=== PATIENT | female | born 1950 | race Caucasian/White ===

== ENCOUNTER 2019-01-04 14:25 | Emergency (ER) | payer BC ==
[~2019-01-04] VITALS: Ht 170.2 cm; Wt 90.7 kg
[~2019-01-04 14:25] MED LIST: ALBU2.5V8 INH; CITA40TA12 PO; CLON0.5T20 PO; GEMF600T8 PO; GLIP5TAB10 PO; LISI1TAB3 PO; MELO15TA23 PO; MULT-18 PO; OMEG1CAP29 PO; OMEP40CA5 PO; SITA1TAB11 PO; [UNRECOGNIZED DRUG - OTHER]
--- NOTE | 2019-01-04 15:25 | RAD ---
EXAM: Right shoulder, 3 views. HISTORY: Fall. COMPARISON: None. FINDINGS: 2 views of the right shoulder obtained. There is a mildly displaced humeral head and neck fracture. There is no shoulder dislocation. IMPRESSION: Mildly displaced humeral head and neck fracture. Electronically signed by: Kiah Elizabeth MD (01/04/2019 3:22 PM) [facility]
[2019-01-04 15:28] VITALS: BP 162/85
--- NOTE | 2019-01-04 15:37 | PHYS DOC ---
Past Medical History Past Medical History: Arthritis, Diabetes-Type II, High Cholesterol, Hypertension Additional Past Medical Histor: Vericose Veins Past Surgical History: Cholecystectomy, Hysterectomy, Tonsillectomy, Other Additional Past Surgical Histo: Bladder sling, L ARM Alcohol Use: None Drug Use: None Adult General Chief Complaint Chief Complaint: MECHANICAL FALL HPI HPI 68-year-old female presents with a right shoulder injury. She slipped and fell on the ice and landed on her right shoulder. Because of the pain she called EMS and EMS brought her here for further evaluation. Patient states other than her right shoulder she feels okay. She did not hit her head or lose consciousness. She states she clearly slipped on ice and had no preceding symptoms such as chest pain shortness of breath or palpitations. She states the pain was severe but she received pain medicine via EMS prior to arrival. She did receive 100 g of fentanyl en route.[] Review of Systems Review of Systems Constitutional: Denies fever or chills [] Eyes: Denies change in visual acuity, redness, or eye pain [] HENT: Denies nasal congestion or sore throat [] Respiratory: Denies cough or shortness of breath [] Cardiovascular: No additional information not addressed in HPI [] GI: Denies abdominal pain, nausea, vomiting, bloody stools or diarrhea [] : Denies dysuria or hematuria [] Musculoskeletal: Per history of present illness[] Integument: Denies rash or skin lesions [] Neurologic: Denies headache, focal weakness or sensory changes [] Endocrine: Denies polyuria or polydipsia [] All other systems were reviewed and found to be within normal limits, except as documented in this note. Current Medications Current Medications Current Medications Medications (Trade) Dose Ordered Sig/Rosemarie Start Time Stop Time Status Last Admin Dose Admin Ondansetron HCl (Zofran Odt) 4 mg 1X ONCE 01/04/19 15:45 01/04/19 15:46 Oxycodone/ Acetaminophen (Percocet 5/325) 2 tab 1X ONCE 01/04/19 15:45 01/04/19 15:46 Allergies Allergies Allergies Coded Allergies Type Severity Reaction Last Updated Verified Penicillins Allergy Intermediate Rash 09/21/15 Yes Tbmknci-Tyt-Uca Reductase Inhibitor Allergy Intermediate MUSCLE ACHES, RHABDO 09/21/15 Yes Physical Exam Physical Exam Constitutional: Well developed, well nourished, mild distress, non-toxic appearance. [] HENT: Normocephalic, atraumatic, bilateral external ears normal, oropharynx moist, no oral exudates, nose normal. [] Eyes: PERRLA, EOMI, conjunctiva normal, no discharge. [] Neck: Normal range of motion, no tenderness, supple, no stridor. [] Cardiovascular:Heart rate regular rhythm, no murmur [] Lungs & Thorax: Bilateral breath sounds clear to auscultation [] Abdomen: Bowel sounds normal, soft, no tenderness, no masses, no pulsatile masses. [] Skin: Warm, dry, no erythema, no rash. [] Back: No tenderness, no CVA tenderness. [] Extremities: Right shoulder has some soft tissue swelling decreased range of motion secondary to pain no obvious deformity no pain over the before meals joint no crepitus over the clavicle.. [] Neurologic: Alert and oriented X 3, normal motor function, normal sensory function, no focal deficits noted. [] Psychologic: Affect normal, judgement normal, mood normal. [] Current Patient Data Vital Signs Vital Signs Date Time Temp Pulse Resp B/P (MAP) Pulse Ox O2 Delivery O2 Flow Rate FiO2 01/04/19 14:26 98.1 64 16 169/77 (107) 100 Room Air 98.1 EKG EKG [] Radiology/Procedures Radiology/Procedures [] Impressions: PROCEDURE: SHOULDER 2+V RIGHT EXAM: Right shoulder, 3 views. HISTORY: Fall. COMPARISON: None. FINDINGS: 2 views of the right shoulder obtained. There is a mildly displaced humeral head and neck fracture. There is no shoulder dislocation. IMPRESSION: Mildly displaced humeral head and neck fracture. Course & Med Decision Making Course & Med Decision Making Pertinent Labs and Imaging studies reviewed. (See chart for details) [] Dragon Disclaimer Dragon Disclaimer This electronic medical record was generated, in whole or in part, using a voice recognition dictation system. Departure Departure Impression: Primary Impression: Proximal humerus fracture Disposition: 01 HOME, SELF-CARE Condition: STABLE Referrals: MARTIN HANNA MD (PCP) EMILIANO MESSINA MD He will need to follow with Dr. Messina in the next 1-2 days for recheck Patient Instructions: Shoulder Fracture (Proximal Humerus or Glenoid)-SportsMed Additional Instructions: Call Dr. Messina's office tomorrow to schedule a follow-up appointment Scripts Ondansetron (ONDANSETRON ODT) 4 Mg Tab.rapdis 1 TAB PO PRN Q6-8HRS for VOMITING, #20 TAB Prov: EMILI MELLO DO 01/04/19 Hydrocodone/Apap 5-325 (NORCO 5-325 TABLET) 1 Each Tablet 1 TAB PO PRN Q6HRS PRN for PAIN, #20 TAB 0 Refills Prov: EMILI MELLO DO 01/04/19 Problem Qualifiers Primary Impression: Proximal humerus fracture Encounter type: initial encounter Fracture type: closed Fracture morphology : other fracture Fracture alignment: nondisplaced Laterality: right Qualified Codes: S42.294A - Other nondisplaced fracture of upper end of right humerus, initial encounter for closed fracture EMILI MELLO DO Jan 04, 2019 15:37
[2019-01-04] MEDS ORDERED: ONDANSETRON ODT 4 MG TAB.RAPDIS. PO ONE (15:45)
[2019-01-04] MEDS ORDERED: oxyCODONE/APAP 5/325 1 TAB TABLET PO ONE (15:45)
[2019-01-04] MEDS ORDERED: ONDA4TAB12 PO (15:49)
[2019-01-04] MEDS ORDERED: HYDR-3164 PO (15:49)
== END 2019-01-04 16:06 | disposition home or self-care (01) ==
LOC: ER 14:25
DX: S42.291A Other displaced fracture of upper end of right humerus, initial encounter for closed fracture (principal); E78.00 Pure hypercholesterolemia, unspecified; E11.9 Type 2 diabetes mellitus without complications; I10 Essential (primary) hypertension; Z88.0 Allergy status to penicillin; Z91.041 Radiographic dye allergy status; W00.0XXA Fall on same level due to ice and snow, initial encounter; Y93.89 Activity, other specified; Y92.89 Other specified places as the place of occurrence of the external cause; Y99.8 Other external cause status
CPT/HCPCS: 29105; 73030; 99284; Q0162

== ENCOUNTER 2019-01-07 16:16 | Emergency (ER) | payer BC ==
[~2019-01-07] VITALS: Ht 170.2 cm; Wt 90.7 kg
[~2019-01-07 16:16] MED LIST changes: +HYDR-3164 PO; +ONDA4TAB12 PO
[2019-01-07] MEDS ORDERED: MORPHINE SULFATE 10 MG/ML VIAL. SQ ONE (16:45)
--- NOTE | 2019-01-07 18:21 | RAD ---
WRIST 3V RIGHT (PA, oblique, lateral) INDICATION: pain after fall COMPARISON: None. FINDINGS: No displaced fracture or malalignment. Mild intercarpal arthrosis. Bony mineralization is normal for the patient's age. No significant soft tissue abnormality. No radiopaque foreign body. IMPRESSION: No displaced fracture or malalignment. Electronically signed by: Lang Begum MD (01/07/2019 6:18 PM) [facility]
--- NOTE | 2019-01-07 18:22 | RAD ---
3 views right elbow HISTORY: Pain after fall AP lateral oblique views The visualized osseous structures appear normal. There is no displacement of the fat pad. IMPRESSION: No acute findings. End impression 3 view C-spine AP open-mouth and lateral views of the C-spine were obtained There is straightening of the normal cervical lordosis. There is mild anterolisthesis of C4 on C5. There is mild soft tissue prominence at the C5-C7 level. At C6-C7 there is loss of intervertebral disc height and marginal spurring and eburnation of the endplates. The C1-C2 relationship appears normal. IMPRESSION: 1. Mild anterolisthesis of C4 on C5 could be degenerative. 2. Straightening of the normal cervical lordosis could be positional or could be muscle spasm. 3. No CT evidence of an acute fracture or malalignment. Clinical correlation is suggested. If there is a clinical concern for an acute injury CT the C-spine is recommended. Electronically signed by: Fabiano Mohan III, MD (01/07/2019 6:19 PM) [facility]
[2019-01-07] MEDS ORDERED: HYDR-3135 PO (18:28)
--- NOTE | 2019-01-07 18:29 | PHYS DOC ---
Past Medical History Past Medical History: Arthritis, Diabetes-Type II, High Cholesterol, Hypertension Additional Past Medical Histor: Vericose Veins (EMELI ISLAS APRN) Past Surgical History: Cholecystectomy, Hysterectomy, Tonsillectomy, Other Additional Past Surgical Histo: Bladder sling, L ARM (EMELI ISLAS APRN) Alcohol Use: None Drug Use: None (EMELI ISLAS APRN) Adult General Chief Complaint Chief Complaint: UPPER EXTREMITY PAIN HPI HPI Patient is a 68 year old female who presents with pain to her right arm and wrist following a fall that resulted in a humeral head fracture. The patient states that she tried to get an appointment with orthopedics but they were not able to see her until January 25, 2019. She states that the pain is intolerable. She states that she is worried she has also fractured her wrist. She is also having pain in her neck. She has been taking the pain medication that she was prescribed but states that it is not effective. (EMELI ISLAS APRN) Review of Systems Review of Systems Constitutional: Denies fever or chills [] Respiratory: Denies cough or shortness of breath [] Cardiovascular: No additional information not addressed in HPI [] GI: Denies abdominal pain, nausea, vomiting, bloody stools or diarrhea [] : Denies dysuria or hematuria [] Musculoskeletal: See history of present illness Integument: Denies rash or skin lesions [] Neurologic: Denies headache, focal weakness or sensory changes [] Endocrine: Denies polyuria or polydipsia [] All other systems were reviewed and found to be within normal limits, except as documented in this note. (EMELI ISLAS APRN) Current Medications Current Medications Current Medications Medications (Trade) Dose Ordered Sig/Rosemarie Start Time Stop Time Status Last Admin Dose Admin Morphine Sulfate (Morphine Sulfate) 10 mg 1X ONCE 01/07/19 16:45 01/07/19 16:46 DC 01/07/19 16:59 10 MG (ROBERT YING DO) Allergies Allergies Allergies Coded Allergies Type Severity Reaction Last Updated Verified Penicillins Allergy Intermediate Rash 09/21/15 Yes Plwueqc-Rjl-Lmw Reductase Inhibitor Allergy Intermediate MUSCLE ACHES, RHABDO 09/21/15 Yes (ROBERT YING DO) Physical Exam Physical Exam Constitutional: Well developed, well nourished, no acute distress, non-toxic appearance. [] Cardiovascular:Heart rate regular rhythm, no murmur [] Lungs & Thorax: Bilateral breath sounds clear to auscultation [] Abdomen: Bowel sounds normal, soft, no tenderness, no masses, no pulsatile masses. [] Skin: Warm, dry, no erythema, no rash. [] Back: tenderness to cervical spine, no CVA tenderness. [] Extremities: tenderness to right wrist and elbow, no cyanosis, no clubbing, ROM decreased due to pain, no edema or ecchymosis noted. [] Neurologic: Alert and oriented X 3, normal motor function, normal sensory function, no focal deficits noted. [] Psychologic: Affect normal, judgement normal, mood normal. [] (EMELI ISLAS APRN) Current Patient Data Vital Signs Vital Signs Date Time Temp Pulse Resp B/P (MAP) Pulse Ox O2 Delivery O2 Flow Rate FiO2 01/07/19 18:30 78 16 155/72 (99) 97 Room Air 01/07/19 16:30 98.8 98.8 (ROBERT YING DO) EKG EKG [] (EMELI ISLAS APRN) Radiology/Procedures Radiology/Procedures []PATIENT: RUBY SMITH CACCOUNT: [id number]#: [id number] : 1950 LOCATION: ER AGE: 68 SEX: F EXAM STATUS: REG ER ORD. PHYSICIAN: EMELI ISLAS APRN REASON: fell on ice, humeral head fracture, increased wrist pain PROCEDURE: WRIST 3V RIGHT WRIST 3V RIGHT (PA, oblique, lateral) INDICATION: pain after fall COMPARISON: None. FINDINGS: No displaced fracture or malalignment. Mild intercarpal arthrosis. Bony mineralization is normal for the patient's age. No significant soft tissue abnormality. No radiopaque foreign body. IMPRESSION: No displaced fracture or malalignment. Electronically signed by: Lang Begmu MD (01/07/2019 6:18 PM) [facility] DICTATED and SIGNED BY: LANG BEGUM MD DATE: 01/07/191814 PATIENT: RUBY SMITH ACCOUNT: [id number] : 1950 LOCATION: ER AGE: 68 SEX: F EXAM STATUS: REG ER ORD. PHYSICIAN: EMELI ISLAS APRN REASON: pain after fall, positive for humeral head fracture PROCEDURE: CERVICAL SPINE 2-3V 3 views right elbow HISTORY: Pain after fall AP lateral oblique views The visualized osseous structures appear normal. There is no displacement of the fat pad. IMPRESSION: No acute findings. End impression 3 view C-spine AP open-mouth and lateral views of the C-spine were obtained There is straightening of the normal cervical lordosis. There is mild anterolisthesis of C4 on C5. There is mild soft tissue prominence at the C5-C7 level. At C6-C7 there is loss of intervertebral disc height and marginal spurring and eburnation of the endplates. The C1-C2 relationship appears normal. IMPRESSION: 1. Mild anterolisthesis of C4 on C5 could be degenerative. 2. Straightening of the normal cervical lordosis could be positional or could be muscle spasm. 3. No CT evidence of an acute fracture or malalignment. Clinical correlation is suggested. If there is a clinical concern for an acute injury CT the C-spine is recommended. Electronically signed by: Judy Leblanc III, MD (01/07/2019 6:19 PM) [facility] DICTATED and SIGNED BY: JUDY LEBLANC III, MD DATE: 01/07/191814 (EMELI ISLAS APRN) Course & Med Decision Making Course & Med Decision Making Pertinent Labs and Imaging studies reviewed. (See chart for details) []The patient was changed to a larger sling. There was an irregularity noted to the ulna on x-ray. Radiology read this as negative but she is clinically tender in that location. She had a Velcro wrist splint applied for comfort. She is to follow-up with orthopedics as scheduled. Her pain medication was refilled. She was also given 10 mg of morphine subcutaneous in the emergency department. (EMELI ISLAS APRN) Dragon Disclaimer Dragon Disclaimer This electronic medical record was generated, in whole or in part, using a voice recognition dictation system. (EMELI ISLAS APRN) Departure Departure Impression: Primary Impression: Ulnar fracture Additional Impression: Inadequate pain control Disposition: HOME, SELF-CARE Condition: STABLE Referrals: UNKNOWN PCP NAME (PCP) Patient Instructions: Cast or Splint Care Additional Instructions: Take the medication as directed. Do not drive or operate heavy machinery while taking this medication. Follow-up with orthopedics at first available appointment or return to the emergency department if worsening. Scripts Hydrocodone/Apap 10-325 (NORCO 10-325 TABLET) 1 Each Tablet 1 TAB PO PRN Q6HRS PRN for PAIN, #20 TAB 0 Refills Prov: EMELI ISLAS APRN 01/07/19 Attending Signature Attending Signature I have reviewed the PA/MEDICAL EQUIPMENT TECHNICIAN's note and plan of care. I was available for consultation as needed during the patient's visit in the emergency department. I agree with the clinical impression, plan, and disposition. (ROBERT YING DO) Problem Qualifiers EMELI ISLAS APRN Jan 07, 2019 18:29 ROBERT YING DO Jan 09, 2019 15:01
[2019-01-07 18:30] VITALS: BP 155/72
== END 2019-01-07 18:27 | disposition home or self-care (01) ==
LOC: ER 16:16
DX: S52.201A Unspecified fracture of shaft of right ulna, initial encounter for closed fracture (principal); S42.291A Other displaced fracture of upper end of right humerus, initial encounter for closed fracture; M54.2 Cervicalgia; I10 Essential (primary) hypertension; E11.9 Type 2 diabetes mellitus without complications; E78.00 Pure hypercholesterolemia, unspecified; Z88.0 Allergy status to penicillin; Z91.041 Radiographic dye allergy status; W00.0XXA Fall on same level due to ice and snow, initial encounter; Y93.89 Activity, other specified; Y92.89 Other specified places as the place of occurrence of the external cause; Y99.8 Other external cause status
CPT/HCPCS: 29125; 72040; 73080; 73110; 96372; 99284; J2270

== ENCOUNTER → 2022-01-20 | Outpatient (CLI) | payer MEDICARE ==
[~2022-01-20] MED LIST changes: +GEMF600T20 PO; -GEMF600T8 PO; +HYDR-3135 PO; -LISI1TAB3 PO; +LISI1TAB35 PO; -OMEP40CA5 PO; +OMEP40CA7 PO
--- NOTE | 2022-01-20 17:10 | KCIC ---
EXAM: Renal sonogram. HISTORY: Renal insufficiency. TECHNIQUE: Sonographic imaging of the kidneys and bladder was performed. COMPARISON: None. FINDINGS: The kidneys are normal in size. No solid or cystic renal lesion is seen. There is no hydron ephrosis. The right ureteral jet is not seen during the exam. The prevoid bladder volume is 39 cc. IMPRESSION: Sonographically unremarkable kidneys. Electronically signed by: Kiah Elizabeth MD (01/20/2022 5:07 PM) [id number]
== END ==
LOC: KCIC US 13:21
PROVIDERS: ATTEND Internal Medicine
DX: I10 Essential (primary) hypertension (principal); E11.9 Type 2 diabetes mellitus without complications; N17.9 Acute kidney failure, unspecified; E11.40 Type 2 diabetes mellitus with diabetic neuropathy, unspecified
CPT/HCPCS: 76770

== ENCOUNTER → 2022-02-06 | Outpatient (CLI) | payer MEDICARE ==
--- NOTE | 2022-02-06 14:46 | KCIC ---
Bilateral digital screening mammograms with 3-D tomosynthesis: Reason for examination: Routine screening. Comparison is made to previous studies dated back to 10/16/2014. Bilateral mammograms in CC and oblique projections were obtained with 2-D imaging and 3-D tomosynthes is imaging on a Siemens Inspiration unit and reviewed on the workstation. Interpretation was made wit h the benefit of CAD. The skin and nipples show no abnormalities. No abnormal axillary lymph nodes are seen. The breast par enchyma shows scattered fatty and fibroglandular density. (Breast density: Category B.) There are no dominant masses, suspicious calcifications or architectural distortion. Impression: No evidence of malignancy. Recommend routine screening. BI-RAD Category 1: Negative. "Our facility is accredited by the [employer] Mammography Program." This patient's information has been entered into a reminder system for the patient to be notified wit h the results of her examination and a target date for the next mammogram. Electronically signed by: Melany Gonzalez MD (02/06/2022 2:44 PM) [id number]
== END ==
LOC: KCIC MAMMO 13:48
PROVIDERS: ATTEND Internal Medicine
DX: Z12.31 Encounter for screening mammogram for malignant neoplasm of breast (principal)
CPT/HCPCS: 77063; 77067